=== PATIENT | male | born 1980 | race Caucasian/White ===

== ENCOUNTER 2018-01-26 11:51 | Emergency (ER) | payer MEDICAID ==
[2018-01-26] MEDS: predniSONE 20 MG TAB PO (14:39)
[2018-01-26] MEDS: ALBUTEROL SULFATE 2.5 MG/0.5 ML INH NEB SOLN NEB (15:14)
[2018-01-26] MEDS: IPRATROPIUM 0.5MG/ALBUTEROL 2.5MG INH SOL UD 3ML (DUONEB)(J7620) NEB (15:14)
[2018-01-26] MEDS: ALBUTEROL 90 MCG/ACT 8GM HFA INHALER INH (15:21)
== END 2018-01-26 15:26 | disposition home or self-care (01) ==
LOC: M ED 11:51
DX: J45.901 Unspecified asthma with (acute) exacerbation (principal); R07.89 Other chest pain; R05 Cough; Z72.0 Tobacco use
CPT/HCPCS: 71046